=== PATIENT | female | born 1990 | race Caucasian/White ===

== ENCOUNTER 2024-01-30 16:23 | Inpatient (IN) ==
[2024-01-30 17:47] LABS: ABS Monocytes 0.7 10^3/uL (0.0-0.9); ABS Neutrophils 3.8 10^3/uL (1.5-7.6); ABS Nucleated RBC 0.01 10^3/ul; Eosinophil % 0.4 %; Hematocrit 44.3 % (35-45); Hemoglobin 15.5 g/dL (11.5-14.3); Lymphocyte % 17.7 %; Mean Corpuscular Hemoglobin 30.5 pg (27-33); Mean Corpuscular Hgb Conc 35.1 g/dL (31-36); Mean Platelet Volume 8.1 fL (7.5-11.2); Nucleated Red Blood Cells % 0.2 %/100WBC (0.0-0.8); Platelet Count 199 10^3/uL (150-450); Red Blood Count 5.09 10^6/uL (3.63-4.92); White Blood Count 5.6 10^3/uL (3.8-11.8)
[2024-01-30 17:58] LABS: Urine Appearance Clear; Urine Bilirubin Negative (Negative); Urine Blood Negative (Negative); Urine Color Yellow; Urine Glucose Negative (Negative); Urine Ketones 1+ (Negative); Urine Nitrite Negative (Negative); Urine Protein Negative (Negative); Urine Specific Gravity 1.012 (1.002-1.030); Urine Urobilinogen Negative (Negative); Urine pH 5.5 (5.0-8.0)
[2024-01-30 18:09] LABS: ALT 13 U/L (7-52); AST 23 U/L (13-39); Albumin 4.4 g/dL (3.2-5.2); Albumin/Globulin Ratio 1.9 (1-3); Alkaline Phosphatase 53 U/L (35-149); Anion Gap 8 mmol/L (2-16); Blood Urea Nitrogen 8 mg/dL (6-24); C Reactive Protein 3.06 mg/L (<8.01); CO2 Carbon Dioxide 25 mmol/L (22-32); Calcium 8.9 mg/dL (8.6-10.3); Chloride 84 mmol/L (101-111); Creatinine, Serum 0.61 mg/dL (0.51-0.95); Globulin 2.3 g/dL (2-4); Glucose 93 mg/dL (70-100); Lipase < 10 U/L (11.0-82.0); Potassium 3.6 mmol/L (3.5-5.0); Sodium 117 mmol/L (135-145); Total Bilirubin 0.4 mg/dL (0.2-1.0); Total Protein 6.7 g/dL (6.4-8.9); eGFR CKD-EPI 119.5 (>60)
[2024-01-30 18:27] LABS: HCG Pregnancy 0.63 mIU/mL
[2024-01-30 20:04] LABS: Anion Gap 8 mmol/L (2-16); Blood Urea Nitrogen 7 mg/dL (6-24); CO2 Carbon Dioxide 25 mmol/L (22-32); Calcium 8.8 mg/dL (8.6-10.3); Chloride 84 mmol/L (101-111); Creatinine, Serum 0.56 mg/dL (0.51-0.95); Glucose 93 mg/dL (70-100); Sodium 117 mmol/L (135-145)
[2024-01-30] MEDS: Iohexol 350 (CONTRAST) 500 ML MDV IV ONE (20:51)
[2024-01-30 21:30] LABS: Osmolality Serum 244 mOsm/kg (275-295); Urine Osmo 237 mOsm/kg (150-1150)
[2024-01-31 00:02] LABS: TSH Ultra Thyroid Stim Horm 5.97 mcIU/mL (0.34-5.60)
[2024-01-31 04:22] LABS: ABS Lymphocytes 1.2 10^3/uL (1.0-4.8); ABS Monocytes 0.8 10^3/uL (0.0-0.9); ABS Neutrophils 2.4 10^3/uL (1.5-7.6); ABS Nucleated RBC 0.01 10^3/ul; Hematocrit 40.5 % (35-45); Hemoglobin 14.5 g/dL (11.5-14.3); Lymphocyte % 27.3 %; Mean Corpuscular Hemoglobin 30.5 pg (27-33); Mean Corpuscular Hgb Conc 35.7 g/dL (31-36); Mean Corpuscular Volume 85.6 fL (80-97); Mean Platelet Volume 8.4 fL (7.5-11.2); Nucleated Red Blood Cells % 0.3 %/100WBC (0.0-0.8); Platelet Count 198 10^3/uL (150-450); Red Blood Count 4.73 10^6/uL (3.63-4.92); White Blood Count 4.4 10^3/uL (3.8-11.8)
[2024-01-31 05:11] LABS: Calcium 8.3 mg/dL (8.6-10.3); Creatinine, Serum 0.57 mg/dL (0.51-0.95); Potassium 3.8 mmol/L (3.5-5.0); eGFR CKD-EPI 121.5 (>60)
[2024-01-31 06:56] LABS: Urine Osmo 549 mOsm/kg (150-1150)
[2024-01-31 12:06] LABS: Free T4 0.74 ng/dL (0.61-1.12)
[2024-01-31] MEDS: Ure-Na 15 GM POWD.PACK PO SCH (19:47)
[2024-02-01 03:44] LABS: ABS Lymphocytes 1.4 10^3/uL (1.0-4.8); ABS Monocytes 0.6 10^3/uL (0.0-0.9); ABS Nucleated RBC 0.01 10^3/ul; Eosinophil % 1.2 %; Hematocrit 40.9 % (35-45); Hemoglobin 14.7 g/dL (11.5-14.3); Lymphocyte % 33.9 %; Mean Corpuscular Hemoglobin 30.8 pg (27-33); Mean Corpuscular Volume 85.6 fL (80-97); Mean Platelet Volume 8.4 fL (7.5-11.2); Nucleated Red Blood Cells % 0.1 %/100WBC (0.0-0.8); Platelet Count 209 10^3/uL (150-450); Red Blood Count 4.78 10^6/uL (3.63-4.92); Red Cell Distribution Width 12.8 % (12-17); White Blood Count 4.2 10^3/uL (3.8-11.8)
[2024-02-01 04:00] LABS: Calcium 8.5 mg/dL (8.6-10.3); Creatinine, Serum 0.55 mg/dL (0.51-0.95); Potassium 3.7 mmol/L (3.5-5.0); eGFR CKD-EPI 122.5 (>60)
[2024-02-01] MEDS: NS 0.9% 1000 ml BAG 1,000 ML IV SCH ×3 (08:54→19:26)
[2024-02-02 06:46] LABS: ABS Lymphocytes 1.5 10^3/uL (1.0-4.8); ABS Monocytes 0.6 10^3/uL (0.0-0.9); ABS Neutrophils 1.9 10^3/uL (1.5-7.6); ABS Nucleated RBC 0.02 10^3/ul; Eosinophil % 0.9 %; Hematocrit 39.7 % (35-45); Lymphocyte % 36.3 %; Mean Corpuscular Hemoglobin 30.1 pg (27-33); Mean Corpuscular Hgb Conc 35.2 g/dL (31-36); Mean Corpuscular Volume 85.4 fL (80-97); Mean Platelet Volume 8.5 fL (7.5-11.2); Nucleated Red Blood Cells % 0.4 %/100WBC (0.0-0.8); Platelet Count 190 10^3/uL (150-450); Red Blood Count 4.64 10^6/uL (3.63-4.92); White Blood Count 4.1 10^3/uL (3.8-11.8)
[2024-02-02 07:02] LABS: Calcium 8.1 mg/dL (8.6-10.3); Creatinine, Serum 0.6 mg/dL (0.51-0.95); Potassium 4.1 mmol/L (3.5-5.0)
[2024-02-02 10:17] VITALS: BP 105/65
== END 2024-02-02 11:29 | disposition home or self-care (01) | DRG 641 ==
LOC: ED 16:23 → EDHOLD 21:06 → SUATTDRO 21:06 → MEDTELE 01-31 11:47
PROVIDERS: ADMIT Internal Medicine; ATTEND Student in an Organized Health Care Education/Training Program